=== PATIENT | female | born 1995 | race Caucasian/White ===

== ENCOUNTER 2018-07-24 20:44 | Emergency (ER) | payer BC ==
[2018-07-24 20:55] VITALS: BP 134/72; PULSE 72; TEMP 98.3; BMI 18.6
[2018-07-24 23:11] LABS: BASO % 0.7 % (0-2.0); EOS % 1.1 % (0-4.5); HEMATOCRIT 39.1 % (32.4-45.2); HEMOGLOBIN 13.5 GM/dL (10.7-15.3); LYMPH % 34.5 % (8-40); MCH 30.6 pg (25.7-33.7); MCHC 34.5 g/dl (32.0-36.0); MEAN CELL VOLUME 88.5 fl (80-96); MONO % 8.1 % (3.8-10.2); NEUT % 55.6 % (42.8-82.8); PLATELET COUNT 166 K/MM3 (134-434); RBC 4.42 M/mm3 (3.60-5.2); RDW 13.3 % (11.6-15.6); WHITE BLOOD COUNT 6.3 K/mm3 (4.0-10.0)
[2018-07-24 23:39] LABS: ALBUMIN 4.3 g/dl (3.4-5.0); ALK PHOS 75 U/L (45-117); ANION GAP 7 MMOL/L (8-16); BILIRUBIN,TOTAL 0.6 mg/dL (0.2-1); BLOOD UREA NITROGEN 12 mg/dL (7-18); CALCIUM 8.7 mg/dL (8.5-10.1); CHLORIDE 108 mmol/L (98-107); CO2 24 mmol/L (21-32); CREATININE 0.6 mg/dL (0.55-1.3); GLUCOSE,RANDOM 74 mg/dL (74-106); POTASSIUM 3.8 mmol/L (3.5-5.1); SGOT/AST 13 U/L (15-37); SGPT/ALT 21 U/L (13-61); SODIUM 138 mmol/L (136-145); TOT PROT 7.1 g/dl (6.4-8.2)
--- NOTE | 2018-07-25 00:06 | PDOC ---
History of Present Illness - General Chief Complaint: Nausea/Vomiting Stated Complaint: VOMITING BLOOD History Source: Patient Exam Limitations: No Limitations - History of Present Illness Initial Comments: 07/25/18 00:00 Patient is a 23-year-old female with no past medical history complaining of vomiting blood and clots today times one episode about 7:30 PM tonight. States that she was walking and just had sudden onset of vomiting with no prodrome of nausea. She has no abdominal pain currently no nausea, no vomiting, no diarrhea. States she had one episode like this a few years ago but was instructed that this was a throat infection that caused her to vomit blood. PMD: Does not remember name PMHx: As above PSOCHX: Negative EtOH, drugs, cigarettes ALL: NKDA GENERAL/CONSTITUTIONAL: No fever or chills. No weakness. No weight change. HEAD, EYES, EARS, NOSE AND THROAT: No change in vision. No ear pain or discharge. No sore throat. CARDIOVASCULAR: No chest pain or shortness of breath. RESPIRATORY: No cough, wheezing, or hemoptysis. GASTROINTESTINAL: No nausea, vomiting, diarrhea or constipation. No rectal bleeding. GENITOURINARY: No dysuria, frequency, or change in urination. MUSCULOSKELETAL: No joint or muscle swelling or pain. No neck or back pain. SKIN AND BREASTS: No rash or easy bruising. NEUROLOGIC: No headache, vertigo, loss of consciousness, or loss of sensation. PSYCHIATRIC: No depression or anxiety. ENDOCRINE: No increased thirst. No abnormal weight change. HEMATOLOGIC/LYMPHATIC: No anemia, easy bleeding, or history of blood clots. ALLERGIC/IMMUNOLOGIC: No hives or skin allergy. No latex allergy. GENERAL: The patient is awake, alert, and fully oriented, in no acute distress. HEAD: Normal with no signs of trauma. EYES: Pupils equal, round and reactive to light, extraocular movements intact, sclera anicteric, conjunctiva clear. ENT: Ears normal, nares patent, oropharynx clear without exudates. Moist mucous membranes. NECK: Normal range of motion, supple without lymphadenopathy, JVD, or masses. LUNGS: Breath sounds equal, clear to auscultation bilaterally. No wheezes, and no crackles. HEART: Regular rate and rhythm, normal S1 and S2 without murmur, rub. ABDOMEN: Soft, nontender, normoactive bowel sounds. No guarding, no rebound. No masses. EXTREMITIES: Normal range of motion, no edema. No clubbing or cyanosis. No cords, erythema, or tenderness. NEUROLOGICAL: Cranial nerves II through XII grossly intact. Normal speech, normal gait. PSYCH: Normal mood, normal affect. SKIN: Warm, Dry, normal turgor, no rashes or lesions noted. Past History - Past Medical History COPD: No CHF: No - Immunization History Immunization Up to Date: Yes - Suicide/Smoking/Psychosocial Hx Smoking History: Never smoked Have you smoked in the past 12 months: No Information on smoking cessation initiated: No Hx Alcohol Use: No Drug/Substance Use Hx: No *Physical Exam - Vital Signs Last Vital Signs Temp Pulse Resp BP Pulse Ox 98.3 F 72 16 134/72 100 07/24/18 20:53 07/24/18 20:53 07/24/18 20:53 07/24/18 20:53 07/24/18 20:53 Moderate Sedation - Procedure Monitoring Vital Signs: Procedure Monitoring Vital Signs Temperature 98.3 F 07/24/18 20:53 Pulse Rate 72 07/24/18 20:53 Respiratory Rate 16 07/24/18 20:53 Blood Pressure 134/72 07/24/18 20:53 O2 Sat by Pulse Oximetry (%) 100 07/24/18 20:53 ED Treatment Course - LABORATORY CBC & Chemistry Diagram: 07/24/18 22:50 07/24/18 22:50 - ADDITIONAL ORDERS Additional order review: Laboratory Results 07/24/18 07/24/18 22:50 22:50 Sodium 138 Potassium 3.8 Chloride 108 H Carbon Dioxide 24 Anion Gap 7 L BUN 12 Creatinine 0.6 Creat Clearance w eGFR 126.20 Random Glucose 74 Calcium 8.7 Total Bilirubin 0.6 AST 13 L ALT 21 Alkaline Phosphatase 75 Total Protein 7.1 Albumin 4.3 Stool Occult Blood Negative 07/24/18 22:50 RBC 4.42 MCV 88.5 MCHC 34.5 RDW 13.3 MPV 10.0 Neutrophils % 55.6 Lymphocytes % 34.5 Monocytes % 8.1 Eosinophils % 1.1 Basophils % 0.7 Medical Decision Making - Medical Decision Making 07/25/18 00:00 Patient is a 23-year-old female with no past medical history complaining of vomiting blood and clots today times one episode about 7:30 PM tonight. States that she was walking and just had sudden onset of vomiting with no prodrome of nausea. She has no abdominal pain currently no nausea, no vomiting, no diarrhea. States she had one episode like this a few years ago but was instructed that this was a throat infection that caused her to vomit blood. Patient had one episode of emesis bloody Will do labs including stool guaiac Labs but stable H&H and is guaiac negative I discussed the physical exam findings, ancillary test results and final diagnoses with the patient. I answered all of the patient's questions. The patient was satisfied with the care received and felt comfortable with the discharge plan and treatment plan. The Patient agrees to follow up with the primary care physician within 24-72 hours. *DC/Admit/Observation/Transfer Diagnosis at time of Disposition: Hematemesis Qualifiers: Nausea presence: unspecified Qualified Code(s): K92.0 - Hematemesis - Discharge Dispostion Disposition: HOME Condition at time of disposition: Stable - Referrals Referrals: Ligia Ibarra [Primary Care Provider] - Dalia Das MD [Staff Physician] - - Patient Instructions Printed Discharge Instructions: DI for Vomiting -- Adult Additional Instructions: Your Discharge Instructions: You must call primary care physician within 24 hours to arrange follow-up. Return to the Emergency Department with any new, persistent or worsening symptoms, for fever, chills, SOB, dizziness or any other concerning changes that may occur. He'll must see a GI specialist for endoscopy - Post Discharge Activity
== END 2018-07-25 01:28 | disposition home or self-care (01) ==
LOC: JER 20:44
DX: K92.0 Hematemesis (principal)
CPT/HCPCS: 36415; 80053; 82272; 85025; 99281-25

== ENCOUNTER 2020-11-24 17:27 | Emergency (ER) | payer BC, OTHER ==
[2020-11-24 17:36] VITALS: BP 119/80; PULSE 95; TEMP 98.1; BMI 19.3
[2020-11-24] MEDS ORDERED: DIPHTH,PERTUSS(ACELL),TET 0.5 ML DISP.SYRIN IM ONE ×2 (18:13→18:14)
== END 2020-11-24 18:39 | disposition home or self-care (01) ==
LOC: JERFT 17:27
PROC: 3E0234Z Introduction of Serum, Toxoid and Vaccine into Muscle, Percutaneous Approach (ICD-10-PCS; principal; 2020-11-24)
DX: S61.211A Laceration without foreign body of left index finger without damage to nail, initial encounter (principal)
CPT/HCPCS: 90715; 99284-25

== ENCOUNTER 2020-12-02 04:26 | Day surgery (SDC) | payer BC, OTHER ==
[2020-11-28 13:20] VITALS: BMI 19.3
[2020-12-02] MEDS ORDERED: MIDAZOLAM HCL 2 MG/2 ML SINGLE DOSE VIAL ONE (07:34)
[2020-12-02] MEDS ORDERED: ROCURONIUM BROMIDE 100 MG/10 ML VIAL ONE ×2 (07:35→07:39)
[2020-12-02] MEDS ORDERED: SUCCINYLCHOLINE CHLORIDE 200 MG/10 ML SYRINGE ONE (07:35)
[2020-12-02] MEDS ORDERED: PROPOFOL 20 ML ONE ×2 (07:35)
[2020-12-02] MEDS ORDERED: LIDOCAINE HCL 1%, 10 MG/ML (20ML VIAL) ONE (07:39)
[2020-12-02] MEDS ORDERED: BUPIVACAINE HCL/PF 0.5% (5MG/ML) 10 ML VIAL ONE (07:39)
[2020-12-02] MEDS ORDERED: ceFAZolin SODIUM 1 GM VIAL IVPB ONE (08:10)
[2020-12-02] MEDS ORDERED: LIDOCAINE HCL 1%, 10 MG/ML (20ML VIAL) NR ONE ×2 (08:25)
[2020-12-02] MEDS ORDERED: BUPIVACAINE HCL/PF 0.5% (5MG/ML) 10 ML VIAL IJ ONE ×2 (08:25)
[2020-12-02] MEDS ORDERED: oxyCODONE HCL 5 MG TABLET PO PRN (09:44)
[2020-12-02] MEDS ORDERED: ONDANSETRON 4 MG/2 ML VIAL IVPUSH PRN (09:44)
[2020-12-02] MEDS ORDERED: LACTATED RINGERS SOLUTION 1,000 ML IV SCH (09:45)
[2020-12-02] MEDS ORDERED: ONDANSETRON 4 MG/2 ML VIAL ONE (10:19)
[2020-12-02] MEDS ORDERED: PROMETHAZINE HCL 25 MG/1 ML VIAL ONE (11:37)
[2020-12-02 14:41] VITALS: TEMP 98
[2020-12-02 14:51] VITALS: BP 122/78; PULSE 98
== END 2020-12-02 14:52 | disposition home or self-care (01) ==
LOC: JASU-SURG 04:26
PROVIDERS: ATTEND Orthopaedic Surgery
PROC: 01Q60ZZ Repair Radial Nerve, Open Approach (ICD-10-PCS; principal; 2020-12-02 08:00)
DX: S64.493A Injury of digital nerve of left middle finger, initial encounter (principal); X58.XXXA Exposure to other specified factors, initial encounter; Y93.89 Activity, other specified; Y92.9 Unspecified place or not applicable; Y99.9 Unspecified external cause status
CPT/HCPCS: 81025; 94760

== ENCOUNTER 2023-04-14 19:45 | Emergency (ER) | payer OTHER, BC ==
[2023-04-14 19:53] VITALS: BP 131/76; PULSE 95; RESP 18; TEMP 99.1; BMI 23.6
[2023-04-14] MEDS ORDERED: AMOX TR/POT CLAV 875MG/125MG TABLETS (FP) PO ONE (20:47)
[2023-04-14] MEDS ORDERED: AMOX TR/POT CLAV 875MG/125MG TABLETS (FP) ONE (20:49)
== END 2023-04-14 20:59 | disposition home or self-care (01) ==
LOC: JERFT 19:45
DX: S61.251A Open bite of left index finger without damage to nail, initial encounter (principal); W55.01XA Bitten by cat, initial encounter; Y99.0 Civilian activity done for income or pay; Y93.K9 Activity, other involving animal care
CPT/HCPCS: 99283-25